=== PATIENT | male | born 1960 | race African-American/Black ===

== ENCOUNTER 2019-06-04 23:17 | Emergency (ER) | payer SELFPAY ==
[~2019-06-04] VITALS: Ht 182.9 cm; Wt 100.0 kg
[2019-06-04 23:50] VITALS: BP 152/104
[2019-06-05 00:05] LABS: BASOPHILS % 0.2 % (0.0-2.0); EOSINOPHILS % 1.2 % (0.0-5.0); HEMATOCRIT. 45.4 % (42.0-52.0); HEMOGLOBIN. 15.1 g/dL (14.0-18.0); LYMPHOCYTES % 16.2 % (20.0-50.0); MEAN CORPUSCULAR HEMOGLOBIN 29.9 pg (28.0-32.0); MEAN CORPUSCULAR VOLUME 90.1 fL (80.0-94.0); MEAN PLATELET VOLUME 6.9 fl (7.4-10.4); MONOCYTES % 5.6 % (2.0-8.0); NEUTROPHILS % 76.8 % (40.0-76.0); PLATELET 314 x1000/uL (130-400); RED BLOOD CELL COUNT 5.04 mill/uL (4.7-6.1); RED CELL DISTRIBUTION WIDTH 14.9 % (11.6-14.6)
[2019-06-05 00:09] LABS: CHLORIDE 105 mEq/L (98-107)
[2019-06-05 00:18] LABS: ETHANOL BLOOD 182 mg/dL
== END 2019-06-05 01:16 | disposition home or self-care (01) ==
LOC: ER 23:17 → EDBD 23:17 → ER 06-05 01:16
DX: F10.129 Alcohol abuse with intoxication, unspecified (principal); Y90.0 Blood alcohol level of less than 20 mg/100 ml; R45.6 Violent behavior
CPT/HCPCS: 36415; 80320; 93005; 99284; G0480

== ENCOUNTER 2019-08-17 16:48 | Emergency (ER) | payer SELFPAY ==
[~2019-08-17] VITALS: Ht 175.3 cm; Wt 104.0 kg
[2019-08-17 16:57] VITALS: BP 230/108
== END 2019-08-17 18:14 | disposition left against medical advice (07) ==
LOC: ER 18:10
DX: T40.991A Poisoning by other psychodysleptics [hallucinogens], accidental (unintentional), initial encounter (principal); F16.188 Hallucinogen abuse with other hallucinogen-induced disorder; Y92.410 Unspecified street and highway as the place of occurrence of the external cause
CPT/HCPCS: 99283